=== PATIENT | male | born 1965 | race Hispanic/Latino ===

== ENCOUNTER → 2017-07-23 | Outpatient (CLI) | payer OTHER ==
[2017-07-23 12:51] LABS: APPEARANCE,URINE Clear (CLEAR); BILIRUBIN,URINE Negative (NEGATIVE); COLOR,URINE Dark Yellow (YELLOW); GLUCOSE, URINE (UA) >=1000 mg/dL (NEGATIVE); KETONES,URINE >=80 mg/dL (NEGATIVE); LEUKOCYTE ESTERASE ,URINE Negative (NEGATIVE); NITRATE,URINE Negative (NEGATIVE); OCCULT BLOOD,URINE Moderate (NEGATIVE); PH,URINE 5.5 (5.0-8.0); PROTEIN,URINE POS 1+ (NEGATIVE)
[2017-07-23 12:55] LABS: BACTERIA,URINE Rare /HPF (None Seen); BASOPHILS % (AUTO) 0.3 % (0.0-5.0); EOSINOPHILS % (AUTO) 0.4 % (0.0-8.0); HEMATOCRIT 45.6 % (42-54); LYMPHOCYTES % (AUTO) 20.9 % (21.0-51.0); MEAN CORPUSCULAR HEMOGLOBIN 32.3 pg (27.0-33.0); MEAN CORPUSCULAR HGB CONC 34.8 g/dL (32.0-36.0); MEAN CORPUSCULAR VOLUME 92.9 fL (79-99); MONOCYTES % (AUTO) 5.9 % (3.0-13.0); NEUTROPHILS % (AUTO) 72.5 % (40.0-77.0); PLATELET COUNT (AUTO) 177 K/uL (130-400); RBC,URINE 0-1 /HPF (0-1); RED BLOOD CELL COUNT(AUTO) 4.91 MIL/uL (4.50-6.20); RED CELL DISTRIBUTION WIDTH 13.2 % (11.0-15.5); SQUAMOUS EPITHELIAL CELL,UR Rare /LPF (0-2); WBC,URINE 0-1 /HPF (0-1)
[2017-07-23 13:01] LABS: HEMOGLOBIN A1C 9.4 % (4.0-6.0)
[2017-07-23 13:11] LABS: ALBUMIN 3.5 g/dL (3.5-5.0); BILIRUBIN,TOTAL 1.1 mg/dL (0.2-1.0); CREATININE 0.9 mg/dL (0.5-1.5); POTASSIUM 3.7 mmol/L (3.5-5.1); THYROID STIMULATING HORMONE 3.33 uIU/mL (0.36-3.74); TOTAL PROTEIN, SERUM 8.2 g/dL (6.0-8.3)
[2017-07-23 13:54] LABS: ERYTHROCYTE SEDIMENTATION RATE 45 MM/HR (0-15)
== END | disposition home or self-care (01) ==
LOC: LAB 12:06
PROVIDERS: ATTEND Nurse Practitioner Family
DX: I10 Essential (primary) hypertension (principal); E11.65 Type 2 diabetes mellitus with hyperglycemia; E55.9 Vitamin D deficiency, unspecified; E29.1 Testicular hypofunction; R53.82 Chronic fatigue, unspecified
CPT/HCPCS: 36415; 80053; 80061; 81001; 82043; 82306; 82672; 83036; 84402; 84403; 84443; 85025; 85651

== ENCOUNTER → 2020-04-25 | Outpatient (CLI) | payer OTHER ==
[2020-04-25 10:37] LABS: BASOPHILS % (AUTO) 0.3 % (0.0-5.0); EOSINOPHILS % (AUTO) 1.2 % (0.0-8.0); HEMATOCRIT 42.1 % (42-54); LYMPHOCYTES % (AUTO) 24.9 % (21.0-51.0); MEAN CORPUSCULAR HGB CONC 35.6 g/dL (32.0-36.0); MEAN CORPUSCULAR VOLUME 89.8 fL (79-99); MONOCYTES % (AUTO) 3.9 % (3.0-13.0); NEUTROPHILS % (AUTO) 69.3 % (40.0-77.0); PLATELET COUNT (AUTO) 131 K/uL (130-400); RED BLOOD CELL COUNT(AUTO) 4.69 MIL/uL (4.50-6.20); WHITE BLOOD COUNT (AUTO) 7.4 K/uL (4.8-10.8)
[2020-04-25 10:42] LABS: APPEARANCE,URINE Clear (CLEAR); BILIRUBIN,URINE Negative (NEGATIVE); COLOR,URINE Yellow (YELLOW); GLUCOSE, URINE (UA) 500 mg/dL (NEGATIVE); KETONES,URINE Trace mg/dL (NEGATIVE); LEUKOCYTE ESTERASE ,URINE Negative (NEGATIVE); NITRATE,URINE Negative (NEGATIVE); OCCULT BLOOD,URINE Moderate (NEGATIVE); PH,URINE 5.5 (5.0-8.0); PROTEIN,URINE POS 2+ mg/dL (NEGATIVE)
[2020-04-25 10:44] LABS: HEMOGLOBIN A1C 7.3 % (4.0-6.0)
[2020-04-25 11:09] LABS: BACTERIA,URINE Rare /HPF (None Seen); MUCUS,URINE Moderate LPF (None Seen); RBC,URINE 0-1 /HPF (0-1); SQUAMOUS EPITHELIAL CELL,UR Rare /HPF (0-2)
[2020-04-25 11:37] LABS: ALBUMIN 3.9 g/dL (3.5-5.0); BILIRUBIN,TOTAL 0.8 mg/dL (0.2-1.0); CREATININE 1.2 mg/dL (0.5-1.5); THYROID STIMULATING HORMONE 3.26 uIU/mL (0.36-3.74); TOTAL PROTEIN, SERUM 7.9 g/dL (6.0-8.3)
[2020-04-25 11:38] LABS: ERYTHROCYTE SEDIMENTATION RATE 6 MM/HR (0-20)
== END | disposition home or self-care (01) ==
LOC: LAB 09:50
PROVIDERS: ATTEND Nurse Practitioner Family
DX: Z12.5 Encounter for screening for malignant neoplasm of prostate (principal); I10 Essential (primary) hypertension; E11.65 Type 2 diabetes mellitus with hyperglycemia; E55.9 Vitamin D deficiency, unspecified
CPT/HCPCS: 36415; 80053; 80061; 81001; 82043; 82652; 83036; 84153; 84439; 84443; 85025; 85651

== ENCOUNTER 2020-08-16 10:41 | Emergency (ER) | payer OTHER ==
[2020-08-16 11:04] LABS: BASOPHILS % (AUTO) 0.3 % (0.0-5.0); EOSINOPHILS % (AUTO) 0.3 % (0.0-8.0); HEMATOCRIT 43.8 % (42-54); LYMPHOCYTES % (AUTO) 16.6 % (21.0-51.0); MEAN CORPUSCULAR HGB CONC 35.4 g/dL (32.0-36.0); MEAN CORPUSCULAR VOLUME 90.3 fL (79-99); MONOCYTES % (AUTO) 4.3 % (3.0-13.0); NEUTROPHILS % (AUTO) 78.2 % (40.0-77.0); PLATELET COUNT (AUTO) 154 K/uL (130-400); RED BLOOD CELL COUNT(AUTO) 4.85 MIL/uL (4.50-6.20); RED CELL DISTRIBUTION WIDTH 12.1 % (11.0-15.5); WHITE BLOOD COUNT (AUTO) 15.5 K/uL (4.8-10.8)
[2020-08-16] MEDS ORDERED: SODIUM CHLORIDE 0.9% 1000ML 1,000 ML IV ONE ×2 (11:07→12:04)
[2020-08-16] MEDS ORDERED: ONDANSETRON HCL 4 MG/2 ML VIAL ONE (11:08)
[2020-08-16 11:18] LABS: CREATININE 1.3 mg/dL (0.5-1.5)
[2020-08-16 11:23] LABS: ALBUMIN 4.1 g/dL (3.5-5.0); BILIRUBIN,TOTAL 0.7 mg/dL (0.2-1.0); TOTAL PROTEIN, SERUM 8.4 g/dL (6.0-8.3)
[2020-08-16 11:32] LABS: CREATINE KINASE, TOTAL 99 U/L (21-232); MYOGLOBIN 36 ng/mL (10-92); TROPONIN I < 0.04 ng/mL (0.00-0.06)
[2020-08-16] MEDS ORDERED: DICYCLOMINE HCL 10 MG/ML 2ML AMP IM ONE (12:06)
== END 2020-08-16 13:07 | disposition home or self-care (01) ==
LOC: EDH 10:41
DX: E86.0 Dehydration (principal); R11.2 Nausea with vomiting, unspecified; R42 Dizziness and giddiness; E11.65 Type 2 diabetes mellitus with hyperglycemia; I10 Essential (primary) hypertension; Z90.49 Acquired absence of other specified parts of digestive tract
CPT/HCPCS: 36415; 80053; 82150; 82550; 82948; 83690; 83874; 84484; 85025; 96361; 96372; 96374; 99284; J0500; J2405; J7030 ×2

== ENCOUNTER 2021-05-10 18:38 | Emergency (ER) | payer OTHER ==
[~2021-05-10] VITALS: Ht 170.2 cm; Wt 5.8 kg
[2021-05-10 20:03] VITALS: BP 142/75
[2021-05-10] MEDS ORDERED: MELO7.5T12 PO (20:29)
[2021-05-10] MEDS ORDERED: CYCL5TAB PO (20:29)
[2021-05-10] MEDS ORDERED: CYCLOBENZAPRINE HCL 10 MG TABLET PO ONE (21:00)
[2021-05-10] MEDS ORDERED: KETOROLAC 60 MG VIAL (30MG/ML) IM ONE (21:00)
== END 2021-05-10 21:00 | disposition home or self-care (01) ==
LOC: EDH 18:38
DX: S92.221A Displaced fracture of lateral cuneiform of right foot, initial encounter for closed fracture (principal); Z79.1 Long term (current) use of non-steroidal anti-inflammatories (NSAID); W11.XXXA Fall on and from ladder, initial encounter; Y93.89 Activity, other specified; Y92.89 Other specified places as the place of occurrence of the external cause; Y99.8 Other external cause status
CPT/HCPCS: 29515; 73630; 73700; 96372; 99284; J1885

== ENCOUNTER 2021-05-12 09:15 | Emergency (ER) | payer OTHER ==
[~2021-05-12] VITALS: Ht 167.6 cm; Wt 90.7 kg
[~2021-05-12 09:15] MED LIST: CYCL5TAB PO; MELO7.5T12 PO
[2021-05-12] MEDS ORDERED: KETOROLAC 60 MG VIAL (30MG/ML) IM SCH (11:30)
[2021-05-12 13:22] VITALS: BP 128/70
== END 2021-05-12 13:24 | disposition home or self-care (01) ==
LOC: EDH 09:15
DX: S82.831A Other fracture of upper and lower end of right fibula, initial encounter for closed fracture (principal); S92.241A Displaced fracture of medial cuneiform of right foot, initial encounter for closed fracture; E11.9 Type 2 diabetes mellitus without complications; E78.00 Pure hypercholesterolemia, unspecified; I10 Essential (primary) hypertension; Z79.1 Long term (current) use of non-steroidal anti-inflammatories (NSAID); W18.39XA Other fall on same level, initial encounter; Y93.89 Activity, other specified; Y92.89 Other specified places as the place of occurrence of the external cause; Y99.8 Other external cause status
CPT/HCPCS: 73562; 73700; 96372; 99284; J1885

== ENCOUNTER → 2022-03-05 | Outpatient (CLI) | payer OTHER ==
[2022-03-05 09:09] LABS: THYROID STIMULATING HORMONE 2.3 uIU/mL (0.36-3.74)
== END | disposition home or self-care (01) ==
LOC: LAB 07:58
PROVIDERS: ATTEND Nurse Practitioner Family
DX: R53.83 Other fatigue (principal); E03.9 Hypothyroidism, unspecified; R63.5 Abnormal weight gain
CPT/HCPCS: 36415; 82670; 83036; 84402; 84403; 84436; 84439; 84443; 84481; 86376